=== PATIENT | female | born 1980 | race Caucasian/White ===

== ENCOUNTER 2024-09-12 10:08 | Emergency (ER) | payer OTHER ==
[~2024-09-12] VITALS: Ht 170.2 cm; Wt 83.6 kg
[2024-09-12 10:29] VITALS: BP 117/81
[2024-09-12 10:30] VITALS: BP 124/78
[2024-09-12 11:00] VITALS: BP 121/78
[2024-09-12 11:30] VITALS: BP 122/80
[2024-09-12] MEDS ORDERED: CHERATUSSIN PO (11:45)
[2024-09-12] MEDS ORDERED: BENZONATATE200 MG PO (11:45)
[2024-09-12] MEDS ORDERED: ZPAK PO (11:45)
[2024-09-12 11:56] VITALS: BP 122/80
== END 2024-09-12 12:05 | disposition home or self-care (01) | DRG 153 ==
LOC: ED 10:08
DX: J06.9 Acute upper respiratory infection, unspecified (principal); Z20.822 Contact with and (suspected) exposure to COVID-19

== ENCOUNTER 2024-09-14 12:17 | Emergency (ER) | payer OTHER ==
[2024-09-14] VITALS (7 sets, daily range): BP systolic 108–128; BP diastolic 71–79
[~2024-09-14] VITALS: Ht 170.2 cm; Wt 77.0 kg
[~2024-09-14 12:17] MED LIST: BENZONATATE200 MG PO; CHERATUSSIN PO; ZPAK PO
[2024-09-14] MEDS ORDERED: methylPREDNISolone SODIUM SUCC 125 MG/2 ML SDV IV ONE (12:35)
[2024-09-14] MEDS ORDERED: IPRATROPIUM-Albuterol 0.5MG-2.5MG/3 ML NEB ONE ×2 (12:35)
[2024-09-14 13:08] LABS: BASO% 0.7 % (0-3); EOS% 6.4 % (0-8); HEMATOCRIT 40.1 % (37.0-47.0); HEMOGLOBIN 12.6 g/dl (12.0-16.0); IMMATURE GRANULOCYTES 0.2 % (0.0-5.0); LYMPH% 36.5 % (15-41); MEAN CELL VOLUME 84.8 fL CALC (80.0-100.0); MEAN CORPUSCULAR HGB 26.6 pG CALC (26.0-32.0); MEAN CORPUSCULAR HGB CONC 31.4 g/dL CAL (32.0-36.0); MONO% 6.9 % (2-13); NEUT# 1.99 thou/uL (2.00-7.15); NEUT% 49.3 % (42-76); RED BLOOD COUNT 4.73 mill/uL (4.20-5.60); RED CELL DISTRI WIDTH 13.4 % (11.5-15.5)
[2024-09-14 13:16] LABS: ALBUMIN 4.6 g/dL (3.2-5.0); BILIRUBIN, TOTAL 0.6 mg/dL (0.02-1.3); CREATININE 0.6 mg/dL (0.5-1.0); POTASSIUM 3.6 mmol/l (3.5-5.1)
[2024-09-14] MEDS ORDERED: guaiFENesin-CODEINE 200-20 MG/10 ML UDC PO ONE (13:35)
[2024-09-14] MEDS ORDERED: PREDNISONE50 MG PO (13:48)
[2024-09-14] MEDS ORDERED: VENTOLIN HFA108 MCG PO (13:48)
== END 2024-09-14 14:05 | disposition home or self-care (01) ==
LOC: ED 12:17
PROVIDERS: Family Medicine
DX: J06.9 Acute upper respiratory infection, unspecified (principal)